=== PATIENT | male | born 1930 | race Caucasian/White ===

== ENCOUNTER 2017-03-28 04:11 | Inpatient (IN) | payer MEDICARE, OTHER ==
[~2017-03-28] VITALS: Ht 165 cm; Wt 60.8 kg
--- NOTE | ~2017-03-28 | OP ---
Record Of Operation [place] [address] [place]. [address] NAME: VANDANA ENGEL : 31 STATUS : DIS IN PAT#: [id number] AGE: 86 ADM/REG DATE : 03/28/17 MR#: [id number] REPORT SERV DATE: 03/28/17 DICTATED BY: ELEUTERIO STALLWORTH DATE: 03/28/17 REPORT STATUS : Draft TRANSCRIBED BY: MODL DATE: 03/28/17 DATE OF PROCEDURE: 03/28/2017 SURGEON: Eleuterio Stallworth DO. ASSISTANTS: Jon and Hussein Beach. PREOPERATIVE DIAGNOSES: 1. Ruptured abdominal aortic aneurysm. 2. Acute respiratory failure. 3. Hypotensive shock secondary to acute blood-loss anemia. 4. Metabolic acidosis. 5. Coagulopathy. 6. Acute on chronic kidney disease. 7. Leukocytosis. 8. History of transient ischemic attack within the past two weeks. 9. History of hypertension. POSTOPERATIVE DIAGNOSES: 1. Ruptured abdominal aortic aneurysm. 2. Acute respiratory failure. 3. Hypotensive shock secondary to acute blood-loss anemia. 4. Metabolic acidosis. 5. Coagulopathy. 6. Acute on chronic kidney disease. 7. Leukocytosis. 8. History of transient ischemic attack within the past two weeks. 9. History of hypertension. 10.Gastrointestinal hemorrhage. PROCEDURES PERFORMED: 1. Bilateral common femoral artery ultrasound-guided access. 2. Aortogram. 3. Catheterization of the abdominal aorta. 4. Intravascular ultrasound of the bilateral iliac, abdominal aorta, and thoracic aorta. 5. Exploratory laparotomy. 6. Extensive lysis of adhesions. 7. Placement of a negative pressure wound VAC greater than 50 cm, primary repair of proximal jejunal intramural hematoma done by Dr. Berumen, please see his dictation for details. ANESTHESIA: General. ESTIMATED BLOOD LOSS: 350 mL. TRANSFUSION: 8 units of packed red blood cells intraoperative and combined with emergency Record Of [address] [place]. [address] NAME: VANDANA ENGEL : 31 STATUS : DIS IN PAT#: [id number] AGE: 86 ADM/REG DATE : 03/28/17 MR#: [id number] REPORT SERV DATE: 03/28/17 DICTATED BY: ELEUTERIO STALLWORTH DATE: 03/28/17 REPORT STATUS : Draft TRANSCRIBED BY: MODL DATE: 03/28/17 room transfusion, one pack of platelets, 4 units of FFP. Please see Anesthesia record for detail. INDICATION FOR PROCEDURE: This is an 86-year-old male who presented to the emergency department with hypotension, unresponsive to IV fluid resuscitation. He apparently lost pulse and was coded multiple times in the emergency department. The emergency room physician did a bedside ultrasound and was concerning for ruptured abdominal aortic aneurysm. I discussed with the and family of the patient that he has a poor prognosis, however, they stated to me that they would like everything done. The risks and benefits of the procedure were described in detail, which included but are not limited to, cardiac event, stroke, bleeding, infection, need for repeat procedures and/or . The family understands this and wants to proceed with the planned procedure. DESCRIPTION OF PROCEDURE: The patient was taken emergently to the operating room and was laid in the supine position. Anesthesia provided ongoing transfusion and IV fluid resuscitation. The patient lost pulse and coded upon reaching operating room and ACLS was commenced. The patient again regained a cardiac rhythm and was transferred from the stretcher to the operating room table. He was placed under general anesthesia after a central line was placed by Anesthesia. The chest, abdomen, and bilateral thighs were prepped and draped widely in the usual sterile fashion. The ultrasound was used to gain access to the right common femoral artery with a micropuncture needle. Micropuncture wire was inserted into the iliac artery and an 11 blade was used to make an incision in the skin. The needle was exchanged for a micropuncture sheath. A Glidewire was passed into the abdominal aorta under fluoroscopic guidance and the sheath was progressively dilated with a 6-Mohawk sheath. A 6-Mohawk sheath was removed and two Perclose devices were placed. The wire was then again passed into the abdominal aorta under fluoroscopic guidance and an 11- Mohawk sheath was placed in the right common femoral artery and flushed with heparinized saline. Attention was turned to the left common femoral artery, which was gained with ultrasound, which was printed and placed on the chart. The micropuncture needle was used to gain access to left common femoral artery. Micropuncture wire was passed into the iliac artery and an 11 blade was used to make an incision in the skin. The micropuncture was exchanged over the wire for a 6-Mohawk sheath. A MAGDA-2 catheter was used to guide the wire into the abdominal aorta. The sheath was flushed with heparinized saline. At this point, a Winthrop flush catheter was guided over the wire on the right side and passed into the abdominal aorta, and an aortogram was obtained. This showed an aneurysmal suprarenal abdominal aortic aneurysm with no extravasation. There was a single left renal artery, which was patent. The celiac and superior mesenteric artery appeared to be patent with no contrast filling the mesenteric arcades secondary to vasoconstriction. The catheter was moved higher into the descending thoracic aorta just above the diaphragm and an abdominal aortogram was obtained, again no extravasation of contrast. At this point, the intravascular ultrasound was guided over the wire on the right side after the Winthrop flush catheter was removed. The right iliac artery did not appear concerning. The infrarenal abdominal aorta appeared to be replaced with aortic graft, which extended up to the left single renal artery. The paravisceral portion of the aorta showed a moderate amount of thrombus within the aorta, but no appearance of dissection or rupture. The superior mesenteric artery and celiac artery were patent. The intravascular ultrasound was passed to the descending thoracic aorta and up to the aortic arch, which all appeared to be Record Of Operation [address] [address] NAME: VANDANA ENGEL : 31 STATUS : DIS IN PAT#: [id number] AGE: 86 ADM/REG DATE : 03/28/17 MR#: [id number] REPORT SERV DATE: 03/28/17 DICTATED BY: ELEUTERIO STALLWORTH DATE: 03/28/17 REPORT STATUS : Draft TRANSCRIBED BY: MODL DATE: 03/28/17 normal without evidence of dissection or rupture. At this point, the patient was still requiring ongoing resuscitation and IV transfusion and it was decided to perform an exploratory laparotomy. A #10 blade was used to perform a celiotomy incision from the sternum to the pubic symphysis. Electrocautery was used to dissect down through subcutaneous tissue until abdominal mesh was reached. The mesh was elevated with two hemostats, and the abdomen was opened sharply. The omentum appeared stuck to the previously placed mesh, this was bluntly swept away from the midline. The mesh was then opened with a combination of sharp dissection and electrocautery. Extensive lyses of adhesions commenced first by taking down all the omental adhesions to the abdominal wall. The abdominal fluid appeared serous with no bloody extravasation. The Omni-Tract was then placed for additional retraction. The abdomen was explored. The gastrohepatic omentum was opened as well as the posterior peritoneum and the lesser sac. The right letty of the diaphragm was visible with retraction of the esophagus to the left. There was no retroperitoneal hematoma visible. Next, the stomach was evaluated and NG tube placed. The NG tube over the course of the operation had approximately 600 mL of bloody output. The duodenum was evaluated followed by elevation of the transverse colon and lysis of adhesions of the small bowel. There were extensive adhesions that were lysed, and upon evaluating the proximal jejunum, there appeared to be a superficial jejunal wall hematoma. Next, the small bowel was eviscerated up to the patient's right and evaluation of the retroperitoneal space showed no evidence of hematoma. The white line of Toldt was taken down all the way to the splenic flexure with no evidence of retroperitoneal hematoma. The left upper quadrant was explored and the liver appeared normal with no evidence of hemorrhage and no evidence of hemorrhage coming from the retrohepatic space or within the left pericolic gutter or within the pelvis upon exploration. The sigmoid colon and descending colon were evaluated and no evidence of hemorrhage; however, the distal sigmoid was dilated, but no evidence of ischemia or hemorrhage. The stomach was elevated and the transverse colon was pulled caudad. The lesser sac was opened, and there was no hematoma within the retroperitoneum. At this point having noticed 600 mL of bloody fluid coming from the NG tube, I called an intraoperative consult to Dr. Salter who then referred me to Dr. Brown who was unable to perform an EGD intraoperatively. I then returned again to the duodenal segment, which had an expanding mural hematoma and consulted Dr. Berumen as an intraoperative consultation. Please see his operative note for details. Essentially, this area was oversewn for reinforcement. The patient remained in critical condition. At this point, Dr. Brown said he had planned to do an endoscopic evaluation after the patient was transferred to the CVICU. A negative pressure dressing greater than 50 cm was then placed over the abdomen using ABThera device. The ABThera was placed within the pericolic gutters and covered with a blue sponge and the entire abdomen was closed with iodoform and connected to the ABThera suction device. The patient was awakened from general anesthesia and moved to the CVICU in critical condition. EC/MODL Eleuterio Stallworth DO / [id number] Record Of Operation [address] [place]. [address] NAME: VANDANA ENGEL : 31 STATUS : DIS IN PAT#: [id number] AGE: 86 ADM/REG DATE : 03/28/17 MR#: [id number] REPORT SERV DATE: 03/28/17 DICTATED BY: ELEUTERIO STALLWORTH DATE: 03/28/17 REPORT STATUS : Draft TRANSCRIBED BY: OLGA DATE: 03/28/17 CC: DO Charly Slaughter M.D.
--- NOTE | ~2017-03-28 | CN ---
Consultation Report [facility] [address] [place]. [address] NAME: VANDANA ENGEL : 31 STATUS : DIS IN PAT#: [id number] AGE: 86 ADM/REG DATE : 03/28/17 MR#: [id number] REPORT SERV DATE: 03/28/17 DICTATED BY: TIM VAZQUEZ DATE: 03/28/17 REPORT STATUS : Draft TRANSCRIBED BY: MODL DATE: 03/28/17 SURGICAL INTRAOPERATIVE CONSULT DATE OF CONSULTATION: 03/28/2017 REASON FOR CONSULTATION: Intraoperative consultation secondary to segmental ischemia of proximal jejunum and coagulopathy. HISTORY OF PRESENT ILLNESS: This 86-year-old gentleman presented to the emergency department with a solitary kidney and previous AAA repair. He was noted to have hypotension and was unresponsive. He required ACLS during his resuscitations over an extended period of time. A bedside ultrasound was performed and apparently a ruptured aortic aneurysm was concerning and he was taken to the operating room. He underwent angiography with no evidence of any leak and an exploratory laparotomy was performed under the direction of Dr. Stallworth. I was asked to the see the patient for the ischemic jejunal segment and if there was any identifiable bleeding source. At the time of consultation, the patient's abdomen was open and he was coagulopathic with previous expiration of his left groin where some edema of the duodenum at the second and third portion junction, otherwise there was no identifiable bleeding source or significant blood that was visualized in a particular bowel segment. The small bowel segment identified was oversewn with Lembert sutures. OPERATIVE TECHNIQUE: The patient had a previous laparotomy at the time of consultation on exploration the abdomen revealed no evidence of any perforated ulcer in the stomach or duodenum. There was no diverticulitis or perforated diverticuli. There was no clinical evidence of any retroperitoneal bleeding or aortoenteric fistula. The patient had a previous left groin exploration with significant oozing secondary to the patient's coagulopathy. He was noted to have a significantly redundant sigmoid colon without evidence of volvulus with diverticulosis. There was no evidence of any retroperitoneal bleeding or visible blood within a bowel segment that would warrant any identifiable etiology for bleeding or hypotension. The patient was noted to have an ischemic segment of small bowel just past the ligament of Treitz with a small expanding hematoma. This segment was identified and with a small serosal tear was oversewn with four interrupted 3-0 Vicryl sutures in Lembert fashion. The lumen was noted to be patent after this portion of the procedure was completed. At that time, there was no evidence of any significant identifiable source for the patient's blood loss, and secondary to his hypotension, coagulopathy, and cold status, the decision made to place a Vac-Pac under the direction of Dr. Stallworth. He will be taken to the intensive care unit with a poor prognosis for survival. NICK/OLGA Tim Vazquez M.D. Consultation Report [address] [address] NAME: VANDANA ENGEL : 31 STATUS : DIS IN PAT#: [id number] AGE: 86 ADM/REG DATE : 03/28/17 MR#: [id number] REPORT SERV DATE: 03/28/17 DICTATED BY: TIM VAZQUEZ DATE: 03/28/17 REPORT STATUS : Draft TRANSCRIBED BY: OLGA DATE: 03/28/17 / [id number] CC: DO Charly Slaughter M.D.
--- NOTE | ~2017-03-28 | CN ---
Consultation Report [facility] [address] [facility] [place]. [address] NAME: VANDANA ENGEL : 31 STATUS : DIS IN PAT#: [id number] AGE: 86 ADM/REG DATE : 03/28/17 MR#: [id number] REPORT SERV DATE: 03/28/17 DICTATED BY: ELEUTERIO STALLWORTH DATE: 03/28/17 REPORT STATUS : Draft TRANSCRIBED BY: MODL DATE: 03/28/17 CONSULT NOTE DATE OF CONSULTATION: 03/28/2017 REASON FOR CONSULT: Ruptured abdominal aortic aneurysm. BRIEF HISTORY OF PRESENT ILLNESS: This is an 86-year-old gentleman with a history of lung cancer, kidney cancer, chronic kidney disease with a single kidney, history of hypertension, and transient ischemic attacks within the last several weeks, presented emergently to the emergency department with hypotension unresponsive to fluid resuscitation. I was called by the emergency room physician, who evaluating the patient. Apparently, the patient was in his normal state of health earlier this morning; however, became extremely hypotensive and upon reaching the Emergency Department, fluid resuscitation was began; however, he lost cardiac function and has been coded intermittently for approximately 70 minutes. He was started on an epi drip to maintain a pulse and blood pressure in addition to IV fluid resuscitation and approximately 2 units of blood. The emergency room physician did a bedside ultrasound and felt there to be a retroperitoneal hematoma concerning for abdominal aortic aneurysm rupture. REVIEW OF SYSTEMS: Unobtainable. HOME MEDICATIONS: Unknown at this point. PAST MEDICAL HISTORY: Includes: 1. History of previous aortic aneurysm, status post open repair. 2. Hypertension. 3. Chronic kidney disease with baseline creatinine of 1.8. 4. History of kidney cancer status post nephrectomy. 5. History of lung cancer, which was treated with radiation therapy until June 2016. 6. Transient ischemic attacks within the past 2 weeks. PAST SURGICAL HISTORY: Includes open aortic aneurysm repair, cholecystectomy, and hernia repair. FAMILY HISTORY: The patient's mother had a brain tumor. The patient's father had a liver cancer. SOCIAL HISTORY: According to records, he is a nonsmoker. Currently, has quit smoking 14 years ago and no history of alcohol or illicit drug use. He lives at home with his . PHYSICAL EXAMINATION: GENERAL: The patient is currently unresponsive, intubated, and hemodynamically unstable. Consultation Report [facility] [address] [place]. [address] NAME: VANDANA ENGEL : 31 STATUS : DIS IN PAT#: [id number] AGE: 86 ADM/REG DATE : 03/28/17 MR#: [id number] REPORT SERV DATE: 03/28/17 DICTATED BY: ELEUTERIO STALLWORTH DATE: 03/28/17 REPORT STATUS : Draft TRANSCRIBED BY: MODL DATE: 03/28/17 VITAL SIGNS: Pulse 122, blood pressure 70/40, O2 saturations are 100%. He is on high-dose epinephrine drip. Being actively coded. NECK: No evidence of JVD, normal thyroid. CHEST: There is no midline sternotomy scar. PULMONARY: Bilateral breath sounds are evident with coarse lung sounds. CARDIAC: Once rhythm was regained, rhythm appears to be sinus rhythm. HEART: Sounds are distant. ABDOMEN: Soft. Palpable abdominal aorta. No ecchymosis. No distention. No organomegaly. EXTREMITIES: Cool, but perfused. SKIN: In general is cool, dry, and intact. LABORATORY DATA: White blood cell count at 04:00 a.m. is 18.3, hemoglobin 12.3, hematocrit 38, platelets 288. Sodium 133, potassium 4, chloride 104, bicarb 19, BUN 42, creatinine 1.75, glucose 284. INR 1.3. PT 16.1, PTT 33. Lactic acid is 5.9, troponin 0.18, magnesium is 2.7, phosphorus of 3.8. LFTs within normal limits. IMAGING STUDIES: Bedside ultrasound performed by Dr. Laurent as described above. ASSESSMENT AND PLAN: This is an unfortunate 86-year-old gentleman with a history of open abdominal aortic aneurysm repair in the past with concern for ruptured AAA. He has had an old CT scan performed approximately a month prior to this emergency visit, which showed approximately 4 cm paravisceral aortic aneurysm. Unfortunately, the patient has coded multiple times, but does regain cardiac rhythm with each round of ACLS performed. I have spoken to the family including his , who is power of ip attorney in detail about his prognosis, which I believe is poor. The family is adamant about doing "everything possible." And that he is full code at this time. The plan is to take him to the operating room for an aortogram, possible endovascular versus open abdominal aortic aneurysm repair. He remains in critical condition. I discussed with the directly about the risks and benefits of the procedure include cardiac arrest, stroke, bleeding, infection, and , and she agrees to continue to proceed with the procedure. EC/MODL Eleuterio Stallworth DO / [id number] CC: Charly Zepeda M.D.
[~2017-03-28 04:11] MED LIST: CREON PO; FISH-EPA1000 MG PO; FLOMAX4 PO; LORTAB10 PO; LOTENSIN HCT1 TA1 PO; NORV10 PO; NORV25 PO; PRAVACHOL40 MG PO; PROPECIA1 MG PO; UROXATRAL PO; ZOCOR10 PO
[2017-03-28 04:45] LABS: CARBOXYHEMOGLOBIN 0.9 % (0-3); DEVICE NRB; HCO3 (ACTUAL BICARBONATE) 14.2 MEQ/L (23-27); HEMOBLOGIN CONTENT 10.8 G/DL (14-18); INSTRUMENT SERIAL # 8087; METHEMOGLOBIN 0.2 % (0-3); O2 CONTENT 15.7 VOL% (18-24); OPERATOR ID 17589; PCO2 (CO2 TENSION) 27 MMHG (35-45); PO2 (O2 TENSION) 299 MMHG (79-93); SAMPLE Arterial; pH 7.35 (7.37-7.43)
[2017-03-28 04:48] LABS: HEMOGLOBIN 12.3 g/dL (13.6-17.8); MEAN CORPUS HGB CONC 32.4 g/dL (32.0-36.0); MEAN CORPUSCULAR HEMOGLOB 26.5 pg (26.0-34.0); MEAN CORPUSCULAR VOLUME 81.9 fL (80-100); MEAN PLATELET VOLUME 9.5 fL (9.2-13.0); RBC DISTRIBUTION WIDTH 14.5 % (12.0-16.0); RED CELL COUNT 4.64 10/6/uL (4.7-6.1)
[2017-03-28 04:52] LABS: ER CBC TAT 0 Hrs 11 Mins; MANUAL DIFF NO %; PLATELET COUNT 288 10/3/uL (150-400); WHITE BLOOD CELLS 18.3 10/3/uL (4.5-10.5)
[2017-03-28 04:54] LABS: INTERNATIONAL NORMAL RATI 1.3 UNITS (-); PROTIME (NOT ORD) 16.1 SEC (12.0-14.5)
[2017-03-28 05:06] LABS: CALCIUM, SERUM 9.1 MG/DL (8.5-10.4); CHLORIDE, SERUM 104 MMOL/L (96-112); CO2 (CARBON DIOXIDE) 19 MMOL/L (24-34); CREATININE 1.75 MG/DL (0.70-1.30); GFR AFRICAN AMERICAN 40 ML/MIN (>=60); GFR NON AFRICAN AMERICAN 35 ML/MIN (>=60); SGOT(AST) 26 U/L (5-40); SGPT(ALT) 20 U/L (5-65); SODIUM, SERUM 137 MMOL/L (135-148); TOTAL BILIRUBIN 0.5 MG/DL (0-1.2); TOTAL PROTEIN 6.7 G/DL (6.0-8.5)
[2017-03-28 05:07] LABS: A/G RATIO 0.8 (0.7-1.9); ALKALINE PHOSPHATASE 97 U/L (45-117); BUN (BLOOD UREA NITROGEN) 42 MG/DL (6-23); GLOBULIN 3.7 G/DL (2.5-4.1); GLUCOSE, SERUM 284 MG/DL (60-99)
[2017-03-28 05:09] LABS: LACTATE 5.9 MMOL/L (0.3-2.4)
[2017-03-28 05:27] LABS: BAND NEUTROPHILS 6 %; EOSINOPHILS 3 %; EOSINOPHILS ABSOLUTE (CALC) 0.55 10/3/uL (0.0-0.53); ER DIFF TAT 0 Hrs 46 Mins; IMMATURE GRANS ABSOLUTE (CALC) 0.37 10/3/uL (0.0-0.11); LYMPHOCYTES 20 %; LYMPHOCYTES ABSOLUTE (CALC) 3.66 10/3/uL (0.67-4.30); METAMYELOCYTES 2 %; MONOCYTES 4 %; MONOCYTES ABSOLUTE (CALC) 0.73 10/3/uL (0.21-1.20); NEUTROPHILS ABSOLUTE (CALC) 12.99 10/3/uL (2.02-8.40); PLATELET ESTIMATE ADQ (ADEQUATE); RBC MORPHOLOGY NORM (NORMAL); SEGMENTED NEUTROPHIL (0) 65 %; TOTAL NUCLEATED CELLS 100
[2017-03-28 05:42] LABS: PROCALCITONIN 0.19 ng/mL (<0.5); TROPONIN I 0.18 NG/ML (<0.05)
[2017-03-28] MEDS ORDERED: PLAVIX PO (10:31)
[2017-03-28] MEDS ORDERED: NORV5 PO (10:31)
[2017-03-28] MEDS ORDERED: ACET500CAP PO (10:32)
[2017-03-28] MEDS ORDERED: FISH-EPA1000 MG PO (10:32)
[2017-03-28] MEDS ORDERED: PRAVACHOL40 MG PO (10:32)
[2017-03-28] MEDS ORDERED: PROSCAR5 PO (10:32)
[2017-03-28 11:42] LABS: BE (BASE EXCESS) -12.8 MEQ/L (0 +/- 2.5); CARBOXYHEMOGLOBIN 0.3 % (0-3); HCO3 (ACTUAL BICARBONATE) 16.5 MEQ/L (23-27); HEMOBLOGIN CONTENT 10.3 G/DL (14-18); INSTRUMENT SERIAL # 11843; METHEMOGLOBIN 0.4 % (0-3); MODE CMV; O2 CONTENT 12.2 VOL% (18-24); OPERATOR ID 19104; PCO2 (CO2 TENSION) 54 MMHG (35-45); PO2 (O2 TENSION) 60 MMHG (79-93); SAMPLE Arterial; TIDAL VOLUME 600 ML; pH 7.11 (7.37-7.43)
== END 2017-03-28 15:19 | disposition expired | DRG 264 ==
LOC: ENRESERVTM → ENRESERV → ENRESERVDT → ER 04:11 → SDC/OF 06:59 → CVICU 10:34
PROVIDERS: Emergency Medicine; Surgery
DX: I71.3 Abdominal aortic aneurysm, ruptured (principal); J96.01 Acute respiratory failure with hypoxia; R57.8 Other shock; N17.9 Acute kidney failure, unspecified; D62 Acute posthemorrhagic anemia; E87.2 Acidosis; I95.89 Other hypotension; K55.019 Acute (reversible) ischemia of small intestine, extent unspecified; S36.429A Contusion of unspecified part of small intestine, initial encounter; N18.9 Chronic kidney disease, unspecified; I12.9 Hypertensive chronic kidney disease with stage 1 through stage 4 chronic kidney disease, or unspecified chronic kidney disease; Z86.73 Personal history of transient ischemic attack (TIA), and cerebral infarction without residual deficits; Z85.118 Personal history of other malignant neoplasm of bronchus and lung; Z85.528 Personal history of other malignant neoplasm of kidney
CPT/HCPCS: 31500; 36415; 36600; 71010; 80053; 81001; 82330; 82803; 82805; 82947; 82962; 83605; 84132; 84145; 84295; 84484; 85014; 85025; 85610; 85730; 86850; 86900; 86901; 86920; 87040; 92950; 93005; 94002; 94770; A9270-GY; C1725; C1760; C1769; C1894; J0282; J0330; J1644; J2370; J2405; P9016; P9035; P9045; P9059; Q9967